=== PATIENT | female | born 1960 | race Caucasian/White ===

== ENCOUNTER 2018-01-27 02:45 | Emergency (ER) | payer OTHER ==
[~2018-01-27] VITALS: Ht 157.5 cm; Wt 79.2 kg
[~2018-01-27 02:45] MED LIST: ACET-2863 PO; ACET-8386 PO; CEPH250C16 PO; CLIN300C2 PO; HYDR2TAB6 PO; IBUP-1842 PO; ONDA8TAB PO; SULF1TAB12 PO
[2018-01-27 02:51] VITALS: BP 134/91
--- NOTE | 2018-01-27 03:01 | NUR ---
PT AMULATED TO ED BED 12
--- NOTE | 2018-01-27 03:18 | NUR ---
PT PRESENTS TO ED WITH C/O LEFT ARM/SHOULDER PAIN RADIATING TO BACK X 8 DAYS. PT DENIES INJURY OR TRAUMA. ROM PRESENT IN ARM AND SHOULDER, CMS INTACT. NO OBVIOUS DEFORMITY NOTED. PT RESTING IN BED, PENDING MD LOCK.
[2018-01-27] MEDS ORDERED: KETOROLAC 30 MG/ML VIAL IM ONE (03:20)
[2018-01-27] MEDS ORDERED: DIAZEPAM 5 MG TAB PO ONE (03:20)
--- NOTE | 2018-01-27 05:00 | NUR ---
PT RESTING COMFORTABLY, NO NEW QUESTIONS OR COMPLAINTS.
[2018-01-27 06:08] VITALS: BP 109/68
--- NOTE | 2018-01-27 06:10 | NUR ---
Patient discharged with v/s stable. Written and verbal after care instructions given and explained. Patient alert, oriented and verbalized understanding of instructions. Ambulatory with steady gait. All questions addressed prior to discharge. ID band removed. Patient advised to follow up with PMD. Rx of AZTHRIMYCIN, VALIUM, NORCO given. Patient educated on indication of medication including possible reaction and side effects. Opportunity to ask questions provided and answered.
== END 2018-01-27 06:08 | disposition home or self-care (01) ==
LOC: MED 02:45
DX: S46.212A Strain of muscle, fascia and tendon of other parts of biceps, left arm, initial encounter (principal); S46.211A Strain of muscle, fascia and tendon of other parts of biceps, right arm, initial encounter; J18.9 Pneumonia, unspecified organism; X58.XXXA Exposure to other specified factors, initial encounter; Y93.89 Activity, other specified; Y92.89 Other specified places as the place of occurrence of the external cause; Y99.8 Other external cause status; Z85.3 Personal history of malignant neoplasm of breast; Z79.899 Other long term (current) drug therapy
CPT/HCPCS: 71045; 96372; 99283; J1885; Q0092

== ENCOUNTER 2022-03-13 15:34 | Emergency (ER) | payer OTHER ==
[~2022-03-13 15:34] MED LIST changes: -ACET-2863 PO; +HYDR-5080 PO; -ONDA8TAB PO; +ONDA8TAB87 PO; +SULF-954 PO; -SULF1TAB12 PO
--- NOTE | 2022-03-13 15:45 | NUR ---
PT CALLED FOR TRIAGE, NO ANSWER.
--- NOTE | 2022-03-13 16:19 | NUR ---
1602: Called in lobby, outside ER lobby - no answer 1619: No answer in lobby, balwinder.
--- NOTE | 2022-03-13 16:40 | NUR ---
PT CALLED, NO ANSWER. PT LEFT BEFORE TRIAGE. UNABLE TO FOUND AFTER CALLING X3 IN THE LOBBY.
== END 2022-03-13 15:45 | disposition left against medical advice (07) ==
LOC: MED 15:34
DX: Z91.81 History of falling (principal); Z53.21 Procedure and treatment not carried out due to patient leaving prior to being seen by health care provider

== ENCOUNTER 2022-08-11 11:04 | Emergency (ER) | payer OTHER ==
[~2022-08-11] VITALS: Ht 157.5 cm; Wt 77.1 kg
[~2022-08-11 11:04] MED LIST changes: -ACET-8386 PO; +ACET-8905 PO
[2022-08-11 11:23] VITALS: BP_SYST 135; BP_SYST 170; BP_DIAS 77; BP_DIAS 92
[2022-08-11] MEDS ORDERED: IBUPROFEN 600 MG TAB PO ONE (13:25)
[2022-08-11] MEDS ORDERED: IBUP-2213 PO (14:15)
--- NOTE | 2022-08-11 14:35 | NUR ---
PT GIVEN PO MOTRIN, COPIES OF XRAY GIVEN AND ACI FOR RIB STRAIN GIVEN. PT ADVISED PO MOTRIN NECESSARY FOR PAIN EVERY 6-8 HOURS. RX MOTRIN EXPLAINED, ALL QUESTIONS ANSWERED.
[2022-08-11 14:37] VITALS: BP 132/64
== END 2022-08-11 14:37 | disposition home or self-care (01) ==
LOC: MED 11:04
DX: S20.211A Contusion of right front wall of thorax, initial encounter (principal); E11.9 Type 2 diabetes mellitus without complications; I10 Essential (primary) hypertension; Z85.3 Personal history of malignant neoplasm of breast; Z79.4 Long term (current) use of insulin; Z79.899 Other long term (current) drug therapy; W18.30XA Fall on same level, unspecified, initial encounter; Y93.89 Activity, other specified; Y92.89 Other specified places as the place of occurrence of the external cause; Y99.8 Other external cause status
CPT/HCPCS: 71101; 82948; 99283; 99284